=== PATIENT | female | born 1925 | race Two or more races ===

== ENCOUNTER 2017-09-06 12:50 | Outpatient (CLI) | payer OTHER ==
[~2017-09-06 12:50] MED LIST: ASA81 MG; ESTAZOLAM 1 MG; ESTAZOLAM2 MG; ESTAZOLAM2 MG PO; LIPITOR20 MG; METOPROLOL TART25 MG; PLAVIX75 MG; [UNRECOGNIZED DRUG - OTHER]
== END 2017-09-06 12:55 | disposition home or self-care (01) ==
LOC: RAD 12:50
DX: M16.12 Unilateral primary osteoarthritis, left hip (principal); M12.852 Other specific arthropathies, not elsewhere classified, left hip